=== PATIENT | male | born 1960 | race African-American/Black ===

== ENCOUNTER → 2019-01-24 | Outpatient (CLI) | payer OTHER ==
--- NOTE | 2019-01-24 10:52 | CT ---
EXAMINATION TYPE: CT urogram wo/w con DATE OF EXAM: 01/24/2019 COMPARISON: None HISTORY: Hematuria CT DLP: 2417 mGycm, Automated Exposure Control for Dose Reduction was Utilized. CONTRAST: CT scan of the abdomen and pelvis is performed with oral and without and with IV Contrast, patient in jected with 100 mL of Isovue 300. Three-D imaging of the genitourinary system was performed at a [employer] workstation and submitted for interpretation. FINDINGS: LUNG BASES: No significant abnormality is appreciated. LIVER/GB: The unenhanced images demonstrate no evidence of radiopaque cholelithiasis. No hepatic stea tosis. The visualized portions of the liver on the enhanced images demonstrate no evidence of hepatic mass although the liver is incompletely visualized. PANCREAS: No significant abnormality is seen. SPLEEN: There is incomplete visualization of the spleen on the enhanced images. No discrete splenic l esion is seen. Small splenules are noted adjacent to the ambler spleen. ADRENALS: There is very slight thickening of the left adrenal gland without focal nodule. Adrenal gla nd hyperplasia is likely. Right adrenal gland is unremarkable. KIDNEYS: The unenhanced images demonstrate no evidence of nephrolithiasis. The unenhanced images demonstrate symmetric enhancement of the kidneys. The delayed images demonstrat e no calyceal blunting or dilation. No ureteral stricture is identified. The bladder is suboptimally evaluated due to extensive spray artifact from bilateral hip prostheses. No uroepithelial thickening or ureteral filling defect is seen. BOWEL: Small hiatal hernia is seen. Scattered sigmoid diverticula are seen without pericolonic fat st randing. No dilated large or small bowel. PROSTATE/SEMINAL VESICLES: Nondiagnostic. LYMPH NODES: No greater than 1cm abdominal or pelvic lymph nodes are appreciated. OSSEOUS STRUCTURES: There are bilateral hip prostheses and moderate multilevel degenerative changes o f the spine. Degenerative disc disease is most severe at L4-L5 and L5-S1. OTHER: Abdominal aorta is of normal course and caliber. IMPRESSION: 1. No evidence of nephrolithiasis, hydronephrosis, uroepithelial thickening, nor ureteral filling def ect. The urinary bladder is nondiagnostic secondary to extensive spray artifact generated from bilate ral hip prostheses. 2. Very small hiatal hernia.
== END | disposition home or self-care (01) ==
LOC: RADCTMAIN 08:20
PROVIDERS: ATTEND Urology
DX: K44.9 Diaphragmatic hernia without obstruction or gangrene (principal); R31.1 Benign essential microscopic hematuria
CPT/HCPCS: 74178; 74400; Q9967

== ENCOUNTER 2019-08-13 09:44 | Emergency (ER) | payer OTHER ==
[2019-08-13 09:59] VITALS: BP 151/97; PULSE 73; RESP 18; TEMP 98.5
[2019-08-13] MEDS ORDERED: ceFAZolin 1,000 MG VIAL (IM USE) IM STA (10:17)
[2019-08-13] MEDS ORDERED: DIPH,PERTUS(ACELL)TETVAC-LF 0.5 ML VIAL IM ONE (10:17)
--- NOTE | 2019-08-13 10:21 | ED ---
General Adult HPI - General Chief complaint: Skin/Abscess/Foreign Body Stated complaint: Spider bug on leg Time Seen by Provider: 08/13/19 09:55 Source: patient, RN notes reviewed, old records reviewed Mode of arrival: ambulatory Limitations: no limitations - History of Present Illness Initial comments: This is a 58-year-old male who presents emergency Department with a small superficial excoriation on the right upper anterior thigh and patient states that occurred a few days ago and now it is spread and there is redness over about a 4 cm diameter area. Patient states a little fluid was expressed from this area but no overt pus. Patient denies any fever or chills. Patient assumed it was a spider bite but never saw a spider. Patient does not recall any injury. Patient has no ALLERGIES and he is not a diabetic. - Related Data Home Medications Medication Instructions Recorded Confirmed Acetaminophen Tab [Tylenol Tab] 650 mg PO Q4H PRN 02/10/16 02/22/16 Atorvastatin [Lipitor] 20 mg PO DAILY 02/10/16 02/22/16 Naproxen Sodium [Aleve] 440 mg PO DAILY PRN 02/10/16 02/22/16 Steroid Injection ONCE 02/10/16 02/10/16 amLODIPine [Norvasc] 10 mg PO DAILY 02/10/16 02/22/16 hydrALAZINE HCL [Apresoline] 25 mg PO DAILY 02/16/16 02/22/16 Previous Rx's Medication Instructions Recorded Aspirin 325 mg PO BID #60 tab 02/23/16 Docusate [Colace] 100 mg PO BID #60 capsule 02/23/16 HYDROcodone/APAP 7.5-325MG [[place] 1 - 2 each PO Q6HR PRN #90 tab 02/23/16 7.5] Cephalexin [Keflex] 500 mg PO Q6HR #40 cap 08/13/19 Sulfamethox-Tmp 800-160Mg [Bactrim 1 each PO Q12HR #20 tab 08/13/19 DS 800-160 mg] Allergies Allergy/AdvReac Type Severity Reaction Status Date / Time grass pollen Allergy SNEEZING,ITCHY Verified 08/13/19 09:55 EYES morphine AdvReac "FREEKED Verified 08/13/19 09:55 OUT". DID LIKE THE FEELING IT GAVE HIM. Review of Systems ROS Statement: Those systems with pertinent positive or pertinent negative responses have been documented in the HPI. ROS Other: All systems not noted in ROS Statement are negative. Past Medical History Past Medical History: Hyperlipidemia, Hypertension, Osteoarthritis (OA) History of Any Multi-Drug Resistant Organisms: None Reported Past Surgical History: Appendectomy, Joint Replacement Additional Past Surgical History / Comment(s): LEFT TOTAL HIP, Right Hip, R knee Past Anesthesia/Blood Transfusion Reactions: No Reported Reaction Past Psychological History: No Psychological Hx Reported Smoking Status: Never smoker Past Alcohol Use History: Occasional Past Drug Use History: Marijuana - Past Family History Mother Family Medical History: No Reported History General Exam - General Exam Comments Initial Comments: GENERAL Patient is well-developed and well-nourished. Patient is in mild distress. EYES Patient's pupils are equal and round. Extraocular motion is intact SKIN Unremarkable NEURO The patient is alert and oriented 3 PYSCH Patient has normal interpersonal interactions. MUSCULOSKELETAL There is a area of cellulitis measuring about 4 cm in diameter on the anterior right thigh there is an excoriated area measuring approximately a quarter centimeter in diameter and very minimal fluid was expressed with significant pressure. No fluctuant area was noted Limitations: no limitations Course Vital Signs 08/13/19 09:56 Temperature 98.5 F Pulse Rate 73 Respiratory 18 Rate Blood Pressure 151/97 O2 Sat by Pulse 99 Oximetry Medical Decision Making - Medical Decision Making I did a wound culture because it was a small amount of fluid expressed from the wound Disposition Clinical Impression: Cellulitis, leg Disposition: HOME SELF-CARE Condition: Good Instructions (If sedation given, give patient instructions): Cellulitis (ED) Additional Instructions: Patient should follow-up if symptoms worsen and he should follow-up in 2 days even if they have not worsened Patient should take antibiotics as prescribed Prescriptions: Sulfamethox-Tmp 800-160Mg [Bactrim DS 800-160 mg] 1 each PO Q12HR #20 tab Cephalexin [Keflex] 500 mg PO Q6HR #40 cap Is patient prescribed a controlled substance at d/c from ED?: No Referrals: Cole Melendez MD [Primary Care Provider] - 1-2 days Time of Disposition: 10:18
== END 2019-08-13 10:51 | disposition home or self-care (01) ==
LOC: EC 09:44
DX: L03.115 Cellulitis of right lower limb (principal); Z23 Encounter for immunization; I10 Essential (primary) hypertension; E78.5 Hyperlipidemia, unspecified; Z79.899 Other long term (current) drug therapy; Z88.5 Allergy status to narcotic agent; Z91.09 Other allergy status, other than to drugs and biological substances
CPT/HCPCS: 87070; 87205; 90715; 99284; 90471; 96372; J0690

== ENCOUNTER 2019-10-02 07:47 | Observation (INO) | payer OTHER ==
[2019-10-02] MEDS ORDERED: SODIUM CHLORIDE 0.9% 1,000 ML IV STA (08:03)
[2019-10-02 08:32] LABS: Basophils % (A) 0 %; Eosinophils # (A) 0.2 k/uL (0-0.7); Eosinophils % (A) 2 %; HCT 46.1 % (39.0-53.0); HGB 14.4 gm/dL (13.0-17.5); Lymphocytes # (A) 1.7 k/uL (1.0-4.8); Lymphocytes % (A) 26 %; MCH 26.3 pg (25.0-35.0); MCHC 31.2 g/dL (31.0-37.0); MCV 84.3 fL (80.0-100.0); Mean Platelet Volume 8.4; Monocytes # (A) 0.3 k/uL (0-1.0); Monocytes % (A) 5 %; Neutrophils # (A) 4.1 k/uL (1.3-7.7); Neutrophils % (A) 64 %; Platelet Count 195 k/uL (150-450); RBC 5.47 m/uL (4.30-5.90); RDW 14.5 % (11.5-15.5); WBC 6.4 k/uL (3.8-10.6)
[2019-10-02] MEDS ORDERED: ONDANSETRON 4 MG/2 ML VIAL IVP STA (08:33)
[2019-10-02] MEDS ORDERED: ASPIRIN 81 MG PO STA (08:47)
[2019-10-02] MEDS ORDERED: HEPARIN SODIUM,PORCINE 5,000 UNIT/ML 1 ML VIAL IV PRN (08:47)
[2019-10-02] MEDS ORDERED: HEPARIN SODIUM,PORCINE 5,000 UNIT/ML 1 ML VIAL IV ONE (08:47)
[2019-10-02] MEDS ORDERED: NITROGLYCERIN SL TABS 0.4 MG TAB SUBLINGUAL PRN (08:47)
--- NOTE | 2019-10-02 08:47 | ED ---
Chest Pain HPI - General Chief Complaint: Chest Pain Stated Complaint: Chest pain Time Seen by Provider: 10/02/19 07:53 Source: patient, RN notes reviewed, old records reviewed Mode of arrival: wheelchair Limitations: no limitations - History of Present Illness Initial Comments: This is a 50-year-old male here for evaluation. Patient comes in for chest pain substernal left-sided chest. No radiation. Patient is a history of low blood pressure and high cholesterol, does occasionally smoke marijuana was smoking some marijuana last night also suffers from anxiety does not drink alcohol. Patient states pain was from sleep this morning about 4 AM. He has had a stress test within the last 5 years. Present was normal. Symptoms are persisting curr ently with difficulty breathing some sweating and shortness of breath. MD Complaint: chest pain -: hour(s) Onset: during rest, awoke with symptoms Pain Location: substernal, left chest Pain Radiation: none Severity: moderate Quality: aching, heaviness Consistency: constant Improves With: nothing Worsens With: nothing Anginal Symptoms: diaphoresis, dyspnea Other Symptoms: palpitations Treatments Prior to Arrival: none - Related Data Home Medications Medication Instructions Recorded Confirmed Acetaminophen Tab [Tylenol Tab] 650 mg PO Q4H PRN 02/10/16 02/22/16 Atorvastatin [Lipitor] 20 mg PO DAILY 02/10/16 02/22/16 Naproxen Sodium [Aleve] 440 mg PO DAILY PRN 02/10/16 02/22/16 Steroid Injection ONCE 02/10/16 02/10/16 amLODIPine [Norvasc] 10 mg PO DAILY 02/10/16 02/22/16 hydrALAZINE HCL [Apresoline] 25 mg PO DAILY 02/16/16 02/22/16 Previous Rx's Medication Instructions Recorded Aspirin 325 mg PO BID #60 tab 02/23/16 Docusate [Colace] 100 mg PO BID #60 capsule 02/23/16 HYDROcodone/APAP 7.5-325MG [[place] 1 - 2 each PO Q6HR PRN #90 tab 02/23/16 7.5] Cephalexin [Keflex] 500 mg PO Q6HR #40 cap 08/13/19 Sulfamethox-Tmp 800-160Mg [Bactrim 1 each PO Q12HR #20 tab 08/13/19 DS 800-160 mg] Allergies Allergy/AdvReac Type Severity Reaction Status Date / Time grass pollen Allergy SNEEZING,ITCHY Verified 10/02/19 07:52 EYES morphine AdvReac "FREEKED Verified 10/02/19 07:52 OUT". DID LIKE THE FEELING IT GAVE HIM. Review of Systems ROS Statement: Those systems with pertinent positive or pertinent negative responses have been documented in the HPI. ROS Other: All systems not noted in ROS Statement are negative. EKG Findings - EKG Comments: EKG Findings:: EKG shows sinus rhythm with 74, TX 144, QRS 80, QTC 437 patient does have no significant ST elevation. EKG is done here with no significant changes. EKG compared to prior morphology does appear the same Past Medical History Past Medical History: Hyperlipidemia, Hypertension, Osteoarthritis (OA) History of Any Multi-Drug Resistant Organisms: MRSA Date of last positivie culture/infection: 08/13/19 MDRO Source:: MRSA LEG Past Surgical History: Appendectomy, Joint Replacement Additional Past Surgical History / Comment(s): LEFT TOTAL HIP, Right Hip, R knee Past Anesthesia/Blood Transfusion Reactions: No Reported Reaction Past Psychological History: No Psychological Hx Reported Smoking Status: Never smoker Past Alcohol Use History: Occasional Past Drug Use History: Marijuana - Past Family History Mother Family Medical History: No Reported History General Exam Limitations: no limitations General appearance: alert, in no apparent distress Head exam: Present: atraumatic, normocephalic, normal inspection Eye exam: Present: normal appearance, PERRL, EOMI. Absent: scleral icterus, conjunctival injection, periorbital swelling ENT exam: Present: normal exam, mucous membranes moist Neck exam: Present: normal inspection. Absent: tenderness, meningismus, lymphadenopathy Respiratory exam: Present: normal lung sounds bilaterally. Absent: respiratory distress, wheezes, rales, rhonchi, stridor Cardiovascular Exam: Present: regular rate, normal rhythm, normal heart sounds. Absent: systolic murmur, diastolic murmur, rubs, gallop, clicks GI/Abdominal exam: Present: soft, normal bowel sounds. Absent: distended, tenderness, guarding, rebound, rigid Extremities exam: Present: normal inspection, full ROM, normal capillary refill. Absent: tenderness, pedal edema, joint swelling, calf tenderness Back exam: Present: normal inspection Neurological exam: Present: alert, oriented X3, CN II-XII intact Psychiatric exam: Present: normal affect, normal mood Skin exam: Present: warm, dry, intact, normal color. Absent: rash Course Vital Signs 10/02/19 10/02/19 07:50 07:59 Temperature 97 F L Pulse Rate 70 80 Respiratory 18 20 Rate Blood Pressure 135/80 148/92 O2 Sat by Pulse 96 98 Oximetry - Reevaluation(s) Reevaluation #1: 10/02/19 08:45 Medical record is reviewed Reevaluation #2: 10/02/19 08:45 Patient so a chest pain - Consultations Consultation #1: Spoke with Dr. Melvin who is agreeable for admission Chest Pain MDM - MDM 58 male here for evaluation. Patient has significant pain persistent. Will be admitted for cardiac observation Critical Care Time Critical Care Time: Yes Total Critical Care Time: 31 Disposition Clinical Impression: Chest pain Disposition: ADMITTED IP TO THIS HOSP Condition: Undetermined Is patient prescribed a controlled substance at d/c from ED?: No Referrals: Cole Melendez MD [Primary Care Provider] - 1-2 days
[2019-10-02 08:55] LABS: INR 0.9 (<1.2); Partial Thromboplastin Time 24.4 sec (22.0-30.0)
[2019-10-02 09:00] LABS: Albumin 4.4 g/dL (3.5-5.0); Calcium 9.3 mg/dL (8.4-10.2); Potassium 3.6 mmol/L (3.5-5.1); Total Bilirubin 0.8 mg/dL (0.2-1.3); Total Protein 7.8 g/dL (6.3-8.2)
[2019-10-02] MEDS ORDERED: HEPARIN SOD,PORK IN 0.45% NACL 25,000 UNIT in 0.45% NACL 1 250ML.BAG IV SCH (09:00)
[2019-10-02] MEDS ORDERED: LORazepam 2 MG/ML INJ IV STA (09:04)
[2019-10-02] MEDS: SODIUM CHLORIDE 0.9% 1,000 ML IV SCH (09:12)
[2019-10-02] MEDS: METOPROLOL TARTRATE 25 MG TAB PO SCH ×2 (09:17→20:07)
--- NOTE | 2019-10-02 10:22 | CT ---
CT CHEST FOR PULMONARY EMBOLISM. EXAMINATION TYPE: CT angio chest DATE OF EXAM: 10/02/2019 INDICATION: Mid Chest pain with shortness of breath. CT DLP: 603.6 mGycm, Automated exposure control for dose reduction was used. CONTRAST: Patient injected with 100 mL of Isovue 370. COMPARISON: None TECHNIQUE: CT of the chest is performed on a spiral scan at 2 mm thick sections. Study is performed with intravenous contrast timed for evaluation for pulmonary embolism. This will limit additional po rtions of the evaluation. 3-D MIP images reconstructed by the technologist are reviewed on the compu ter in the coronal and sagittal planes. There is some limitation due to beam hardening artifact from the contrast and/or body habitus. FINDINGS: No persistent filling defects are evident to suggest an acute pulmonary embolism. No mediastinal or hilar adenopathy enlarged by CT criteria is evident. The ascending aorta diameter at the level of the main pulmonary artery is 3.7 cm. No obvious dissection is identified. The main p ulmonary artery diameter at the bifurcation is 2.5 cm. Lung windows are clear. Limited CT section through the upper abdomen are unremarkable. IMPRESSIONS: 1. No suspicious acute changes CTA chest.
--- NOTE | 2019-10-02 11:57 | P.CRDCN ---
History of Present Illness Consult date: 10/02/19 Chief complaint: Chest pain History of present illness: This is a very pleasant 58-year-old -[place]yp[place] gentleman who sees Dr. Clements in the office on regular basis with a past medical history significant for hypertension, dyslipidemia, and significant history of smoking, presented to the emergency room complaining of chest discomfort. He was in his usual state of health until this morning when he woke up from sleep complaining of discomfort. The patient described her discomfort in the lower chest as well as epigastric area. He described it as sharp, without any radiation, and without any associated symptoms of shortness of breath, sweating, nausea, or syncope. No symptoms of heart racing or fluttering. When he presented to the emergency room he was in pain he was given some pain medication. He continues to have mild ongoing chest discomfort but he states clearly that the discomfort is worse if he takes a deep breath. D-dimer came in to be elevated but CTA of the chest did not show any evidence of dissection or pulmonary embolism. The patient stated that last night he slept on one of the recliner chair in her ongoing. He stated that he woke up complaining of chest discomfort. No history of coronary artery disease or congestive heart failure or cardiac arrhythmia. He stated that he underwent stress test Dr. Clemetns office in the past but that was long time ago. The EKG revealed sinus rhythm without any significant ST or T-wave abnormalities. The first set of troponin came in to be unremarkable. The rest of the blood work came in to be unremarkable as well. Past Medical History Past Medical History: Chest Pain / Angina, Hyperlipidemia, Hypertension, Memory Impairment, Osteoarthritis (OA), Prostate Disorder, Renal Disease History of Any Multi-Drug Resistant Organisms: MRSA Date of last positivie culture/infection: 08/13/19 MDRO Source:: MRSA right LEG Past Surgical History: Appendectomy, Joint Replacement Additional Past Surgical History / Comment(s): LEFT TOTAL HIP, Right Hip, R knee Past Anesthesia/Blood Transfusion Reactions: No Reported Reaction Past Psychological History: Anxiety, Panic Disorder Smoking Status: Former smoker Past Alcohol Use History: Occasional Additional Past Alcohol Use History / Comment(s): CIGARS-STARTED SMOKING AT AGE 25- SMOKES A CIGAR A WEEK Past Drug Use History: Marijuana Additional Drug Use History / Comment(s): LAST USED MARIJUANA 10/02/2019 - Past Family History Mother Family Medical History: Diabetes Mellitus, Hypertension Daughter(s) Additional Family Medical History / Comment(s): LUPUS Medications and Allergies Home Medications Medication Instructions Recorded Confirmed Type Acetaminophen Tab [Tylenol Tab] 650 mg PO Q4H PRN 02/10/16 02/22/16 History Atorvastatin [Lipitor] 20 mg PO DAILY 02/10/16 02/22/16 History Naproxen Sodium [Aleve] 440 mg PO DAILY PRN 02/10/16 02/22/16 History Steroid Injection ONCE 02/10/16 02/10/16 History amLODIPine [Norvasc] 10 mg PO DAILY 02/10/16 02/22/16 History hydrALAZINE HCL [Apresoline] 25 mg PO DAILY 02/16/16 02/22/16 History Aspirin 325 mg PO BID #60 tab 02/23/16 Rx Docusate [Colace] 100 mg PO BID #60 capsule 02/23/16 Rx HYDROcodone/APAP 7.5-325MG [[place] 1 - 2 each PO Q6HR PRN #90 tab 02/23/16 Rx 7.5] Cephalexin [Keflex] 500 mg PO Q6HR #40 cap 08/13/19 Rx Sulfamethox-Tmp 800-160Mg [Bactrim 1 each PO Q12HR #20 tab 08/13/19 Rx DS 800-160 mg] Allergies Allergy/AdvReac Type Severity Reaction Status Date / Time grass pollen Allergy SNEEZING,ITCHY Verified 10/02/19 07:52 EYES morphine AdvReac "FREEKED Verified 10/02/19 07:52 OUT". DID LIKE THE FEELING IT GAVE HIM. Physical Exam Vitals: Vital Signs Temp Pulse Pulse Resp BP BP Pulse Ox 10/02/19 11:11 98.5 F 72 17 134/81 96 10/02/19 10:50 97.6 F 66 16 139/82 98 10/02/19 08:45 70 18 141/78 98 10/02/19 07:59 80 20 148/92 98 10/02/19 07:50 97 F L 70 18 135/80 96 Intake and Output 10/01/19 10/02/19 10/02/19 22:59 06:59 14:59 Other: Weight 106.594 kg - Constitutional General appearance: no acute distress - Respiratory Respiratory: bilateral: CTA - Cardiovascular Rhythm: regular Heart sounds: normal: S1, S2 Results 10/02/19 08:07 10/02/19 08:07 Cardiac Enzymes 10/02/19 10/02/19 Range/Units 08:07 08:07 AST 31 (17-59) U/L Troponin I <0.012 (0.000-0.034) ng/mL Coagulation 10/02/19 Range/Units 08:07 PT 10.0 (9.0-12.0) sec APTT 24.4 (22.0-30.0) sec CBC 10/02/19 Range/Units 08:07 WBC 6.4 (3.8-10.6) k/uL RBC 5.47 (4.30-5.90) m/uL Hgb 14.4 (13.0-17.5) gm/dL Hct 46.1 (39.0-53.0) % Plt Count 195 (150-450) k/uL Comprehensive Metabolic Panel 10/02/19 Range/Units 08:07 Sodium 141 (137-145) mmol/L Potassium 3.6 (3.5-5.1) mmol/L Chloride 105 (98-107) mmol/L Carbon Dioxide 25 (22-30) mmol/L BUN 14 (9-20) mg/dL Creatinine 1.12 (0.66-1.25) mg/dL Glucose 109 H (74-99) mg/dL Calcium 9.3 (8.4-10.2) mg/dL AST 31 (17-59) U/L ALT 18 (4-49) U/L Alkaline Phosphatase 109 (38-126) U/L Total Protein 7.8 (6.3-8.2) g/dL Albumin 4.4 (3.5-5.0) g/dL Current Medications Generic Name Dose Route Start Last Admin Trade Name Freq PRN Reason Stop Dose Admin Aspirin 325 mg 10/03/19 09:00 Aspirin PO DAILY JANET Heparin Sodium (Porcine) 0 unit 10/02/19 08:47 Heparin IV Q6HR PRN Low PTT Protocol Sodium Chloride 1,000 mls @ 20 mls/hr 10/02/19 09:00 10/02/19 09:12 Saline 0.9% IV 20 mls/hr .Q24H JANET Administration Heparin Sodium/Sodium Chloride 250 mls @ 9.999 mls/hr 10/02/19 09:00 10/02/19 09:12 25,000 unit/ Sodium Chloride IV 9.38 units/kg/hr .Q24H JANET 9.999 mls/hr Administration Protocol 9.38 UNITS/KG/HR Metoprolol Tartrate 25 mg 10/02/19 09:00 10/02/19 09:17 Lopressor PO 25 mg BID JANET Administration Nitroglycerin 0.4 mg 10/02/19 08:47 Nitrostat SUBLINGUAL Q5M PRN Chest Pain Intake and Output 10/01/19 10/02/19 10/02/19 22:59 06:59 14:59 Other: Weight 106.594 kg Patient Weight 10/03/19 06:59 Weight 106.594 kg 10/02/19 08:07 10/02/19 08:07 Assessment and Plan Assessment: Assessment #1 atypical/musculoskeletal chest discomfort #2 hypertension #3 dyslipidemia Plan #1 rule out acute coronary event. We'll follow-up with the serial cardiac enzymes #2 continue his current home medications #3 further recommendation to follow Thank you for allowing us participate in his care
[2019-10-02] MEDS ORDERED: ACETAMINOPHEN TAB 325 MG TAB PO PRN (13:08)
[2019-10-02] MEDS ORDERED: ONDANSETRON 4 MG/2 ML VIAL IVP PRN (13:08)
--- NOTE | 2019-10-02 13:09 | P.HPIM ---
History of Present Illness H&P Date: 10/02/19 This is a 58 years old -[place] male with past medical history of hyperlipidemia, hypertension, memory impairment, BPH, renal disease with past history of MRSA positive skin in the right lower leg on August 2019 post right knee replacement comes in with substernal chest pressure that started at 4 AM in the morning while patient was sleeping. Patient did notice pain in his neck in the night and was getting a massage from his girlfriend. He slept in a recliner and felt he was in an upward pose when the chest pain started. Chest pain gets worse with deep breath and is associated with sweating. Patient is short of breath on exertion. He denies any fever or chills or upper respiratory infection. He did endorse a dry cough for the past few days. Patient denies any sick contacts denies any previous history of similar episode. He did smoke marijuana yesterday On evaluation of vitals, temp is 98.5 pulse 72 respiratory rate 17 blood pressure 134/81 CBC is unremarkable CMP is unremarkable CTA was negative for any pulmonary embolism or any consolidation concerning for pneumon ia. Influenza A and B-. Troponin 1 negative EKG was positive for ST changes noted in the anterior leads with flattening of T waves noted in lead 3. Repeat EKG tomorrow. Cardiology consulted Review of Systems Constitutional: Denies chills, Denies fever, Denies lethargy, Denies malaise, Denies poor appetite, Denies weakness, Denies weight loss Eyes: denies decreased vision, denies diplopia, denies discharge, denies pain Ears: deny: decreased hearing Ears, nose, mouth and throat: Denies dental pain, Denies headache, Denies nasal discharge, Denies nose pain Cardiovascular: Endorses chest pain on taking deep breath Denies decreased exercise tolerance, Denies edema endorses high blood pressure, Denies irregular heart beat, Denies palpitations, Denies paroxysmal nocturnal dyspnea, Denies rapid heart beat, endorses shortness of breath Respiratory: Denies congestion, Denies cough, Denies cough with sputum, endorses dyspnea, Denies home oxygen, Denies wheezing Gastrointestinal: Denies abdominal pain, Denies change in bowel habits, Denies coffee ground emesis, Denies early satiety, Denies excessive gas, Denies heartburn, Denies hematemesis, Denies hematochezia, Denies loss of appetite, Denies nausea, Denies vomiting Genitourinary: Denies dysuria, Denies flank pain, Denies kidney stones, Denies menorrhagia, Denies urgency, Denies urinary frequency Musculoskeletal: Denies gait dysfunction, Denies limitation of motion, Denies morning stiffness, Denies muscle cramps endorses neck stiffness Integumentary: Denies rash, Denies wounds, Denies brittle nails, Denies change in hair/nails, Denies darkening of skin Neurological: Denies balance difficulties, Denies change in speech, Denies double vision, Denies gait dysfunction, Denies loss of vision, Denies motor disturbance, Denies numbness, Denies paralysis, Denies paresthesias, Denies seizures Psychiatric: Denies anxiety, Denies depression Endocrine: Denies excessive sweating, Denies excessive thirst, Denies high blood sugars, Denies palpitations Hematologic/Lymphatic: Denies easy bruising, Denies lymphadenopathy Past Medical History Past Medical History: Chest Pain / Angina, Hyperlipidemia, Hypertension, Memory Impairment, Osteoarthritis (OA), Prostate Disorder, Renal Disease History of Any Multi-Drug Resistant Organisms: MRSA Date of last positivie culture/infection: 08/13/19 MDRO Source:: MRSA right LEG Past Surgical History: Appendectomy, Joint Replacement Additional Past Surgical History / Comment(s): LEFT TOTAL HIP, Right Hip, R knee Past Anesthesia/Blood Transfusion Reactions: No Reported Reaction Past Psychological History: Anxiety, Panic Disorder Smoking Status: Former smoker Past Alcohol Use History: Occasional Additional Past Alcohol Use History / Comment(s): CIGARS-STARTED SMOKING AT AGE 25- SMOKES A CIGAR A WEEK Past Drug Use History: Marijuana Additional Drug Use History / Comment(s): LAST USED MARIJUANA 10/02/2019 - Past Family History Mother Family Medical History: Diabetes Mellitus, Hypertension Daughter(s) Additional Family Medical History / Comment(s): LUPUS Medications and Allergies Home Medications Medication Instructions Recorded Confirmed Type Acetaminophen Tab [Tylenol Tab] 650 mg PO Q4H PRN 02/10/16 02/22/16 History Atorvastatin [Lipitor] 20 mg PO DAILY 02/10/16 02/22/16 History Naproxen Sodium [Aleve] 440 mg PO DAILY PRN 02/10/16 02/22/16 History Steroid Injection ONCE 02/10/16 02/10/16 History amLODIPine [Norvasc] 10 mg PO DAILY 02/10/16 02/22/16 History hydrALAZINE HCL [Apresoline] 25 mg PO DAILY 02/16/16 02/22/16 History Aspirin 325 mg PO BID #60 tab 02/23/16 Rx Docusate [Colace] 100 mg PO BID #60 capsule 02/23/16 Rx HYDROcodone/APAP 7.5-325MG [[place] 1 - 2 each PO Q6HR PRN #90 tab 02/23/16 Rx 7.5] Cephalexin [Keflex] 500 mg PO Q6HR #40 cap 08/13/19 Rx Sulfamethox-Tmp 800-160Mg [Bactrim 1 each PO Q12HR #20 tab 08/13/19 Rx DS 800-160 mg] Allergies Allergy/AdvReac Type Severity Reaction Status Date / Time grass pollen Allergy SNEEZING,ITCHY Verified 10/02/19 07:52 EYES morphine AdvReac "FREEKED Verified 10/02/19 07:52 OUT". DID LIKE THE FEELING IT GAVE HIM. Physical Exam Vitals: Vital Signs Temp Pulse Pulse Resp BP BP Pulse Ox 10/02/19 11:11 98.5 F 72 17 134/81 96 10/02/19 10:50 97.6 F 66 16 139/82 98 10/02/19 08:45 70 18 141/78 98 10/02/19 07:59 80 20 148/92 98 10/02/19 07:50 97 F L 70 18 135/80 96 Intake and Output 10/01/19 10/02/19 10/02/19 22:59 06:59 14:59 Other: Weight 106.594 kg - Constitutional General appearance: cooperative, no acute distress, obese - EENT Eyes: anicteric sclerae, PERRLA, normal appearance ENT: hearing grossly normal - Neck Neck: no lymphadenopathy, normal ROM, no other, no rigidity, no stridor, no tenderness in the neck noted examination - Respiratory Respiratory: bilateral: CTA, negative: diminished, dullness, rales, rhonchi no chest wall tenderness noted - Cardiovascular Rhythm: regular Heart sounds: normal: S1, S2 Abnormal Heart Sounds: no systolic murmur, no diastolic murmur, no rub, no S3 Gallop, no S4 Gallop, no click, no other - Gastrointestinal General gastrointestinal: normal bowel sounds, soft nontender - Integumentary Integumentary: no rash - Neurologic Neurologic: CNII-XII intact - Musculoskeletal Musculoskeletal: gait normal, strength equal bilaterally - Psychiatric Psychiatric: A&O x's 3, appropriate affect Results CBC & Chem 7: 10/02/19 08:07 10/02/19 08:07 Labs: Abnormal Lab Results - Last 24 Hours (Table) 10/02/19 10/02/19 Range/Units 08:07 08:07 D-Dimer 0.76 H (<0.60) mg/L FEU Glucose 109 H (74-99) mg/dL Thrombosis Risk Factor Assmnt - DVT/VTE Prophylaxis DVT/VTE Prophylaxis: Mechanical Prophylaxis ordered - Choose All That Apply Any of the Below Risk Factors Present?: Yes Each Factor Represents 1 point: Age 41-60 years, Obesity (BMI >25) Other Risk Factors: No Other congenital or acquired thrombophilia - If yes, enter type in comment: No Thrombosis Risk Factor Assessment Total Risk Factor Score: 2 Thrombosis Risk Factor Assessment Level: Low Risk Assessment and Plan Plan: #1 acute chest pain rule out ACS. Troponin 3 EKG in the morning and echocardiogram ordered, cardiology consult. Continue aspirin 325 mg by mouth daily. Lipid panel ordered. Toradol 30 every 6 for musculoskeletal pain. Metoprolol initiated 25 mg by mouth twice a day. Patient did smoke marijuana prior to the onset of chest pain #2 hyperlipidemia continue atorvastatin 20 mg by mouth daily #3 hypertension continue Norvasc 10 mg by mouth daily. #4 DVT prophylaxis with ambulation #5 history of MRSA in the proximal right lower extremity above his knee resolved healed #6 GI prophylaxis with Pepcid 20 mg by mouth daily CODE STATUS full code Patient will stay in observation until cleared by cardiology
[2019-10-02] MEDS: KETOROLAC 30 MG/ML 1 ML VIAL IVP SCH ×2 (18:13→23:34)
[2019-10-02] MEDS: guaiFENesin 600 MG TABLET.ER PO SCH (20:08)
[2019-10-03 05:37] LABS: Mean Platelet Volume 9.3; Platelet Count 151 k/uL (150-450)
[2019-10-03 06:08] LABS: Cholesterol 116 mg/dL (<200); HDL Cholesterol 53 mg/dL (40-60); LDL Cholesterol,Calculated 53 mg/dL (0-99); Triglycerides 52 mg/dL (<150)
[2019-10-03 07:09] LABS: Glucose,Whole Blood 82 mg/dL (75-99)
[2019-10-03 07:33] VITALS: BP 120/71; PULSE 72; RESP 17; TEMP 97.7
[2019-10-03] MEDS: KETOROLAC 30 MG/ML 1 ML VIAL IVP SCH (08:24)
[2019-10-03] MEDS: guaiFENesin 600 MG TABLET.ER PO SCH (08:24)
[2019-10-03] MEDS: SODIUM CHLORIDE 0.9% 1,000 ML IV SCH (08:26)
[2019-10-03] MEDS ORDERED: ASPIRIN 325 MG TAB PO SCH (09:00)
[2019-10-03] MEDS ORDERED: FAMOTIDINE 20 MG TAB PO SCH (09:00)
[2019-10-03] MEDS ORDERED: amLODIPine 5 MG TAB PO SCH (09:00)
[2019-10-03] MEDS ORDERED: ATORVASTATIN 20 MG TAB PO SCH (09:00)
[2019-10-03] MEDS ORDERED: ASPIRIN 81 MG PO SCH (09:00)
--- NOTE | 2019-10-03 10:14 | ECHOF ---
Referral Reason:pericarditis MEASUREMENTS -------- HEIGHT: 182.9 cm WEIGHT: 106.6 kg BP: 125/72 RVIDd: 2.9 cm (< 3.3) IVSd: 1.3 cm (0.6 - 1.1) LVIDd: 4.4 cm (3.9 - 5.3) LVPWd: 1.3 cm (0.6 - 1.1) IVSs: 1.7 cm LVIDs: 2.8 cm LVPWs: 1.7 cm LA Diam: 3.3 cm (2.7 - 3.8) LAESV Index (A-L): 24.35 ml/m Ao Diam: 3.3 cm (2.0 - 3.7) AV Cusp: 2.4 cm (1.5 - 2.6) MV EXCURSION: 19.436 mm (> 18.000) MV EF SLOPE: 93 mm/s (70 - 150) EPSS: 0.4 cm MV E Jaison: 0.72 m/s MV DecT: 206 ms MV A Jaison: 0.80 m/s MV E/A Ratio: 0.90 RAP: 5.00 mmHg RVSP: 28.61 mmHg FINDINGS -------- Sinus rhythm. This was a technically adequate study. The left ventricular size is normal. There is mild concentric left ventricular hypertrophy. Overa ll left ventricular systolic function is normal with, an EF between 55 - 60 %. The right ventricle is normal in size. Normal LA size by volume 22+/-6 ml/m2. The right atrial size is normal. Interatrial and interventricular septum intact. The aortic valve is trileaflet, and appears structurally normal. No aortic stenosis or regurgitation. The mitral valve is normal. There is trace to mild mitral regurgitation. The tricuspid valve appears structurally normal. Mild tricuspid regurgitation present. Right vent ricular systolic pressure is normal at < 35 mmHg. The right ventricular systolic pressure, as measu red by Doppler, is 28.61mmHg. Trace/mild (physiologic) pulmonic regurgitation. The aortic root size is normal. Normal inferior vena cava with normal inspiratory collapse consistent with estimated right atrial pre ssure of 5 mmHg. There is no pericardial effusion. CONCLUSIONS -------- 1. Sinus rhythm. 2. The left ventricular size is normal. 3. There is mild concentric left ventricular hypertrophy. 4. Overall left ventricular systolic function is normal with, an EF between 55 - 60 %. 5. Normal LA size by volume 22+/-6 ml/m2. 6. The aortic valve is trileaflet, and appears structurally normal. No aortic stenosis or regurgitati on. 7. There is trace to mild mitral regurgitation. 8. Mild tricuspid regurgitation present. 9. Right ventricular systolic pressure is normal at < 35 mmHg. 10. Trace/mild (physiologic) pulmonic regurgitation. 11. There is no pericardial effusion. MEDICAL RECORDS ADMINISTRATOR: Paz Catherine RDCS
[2019-10-03] MEDS: METOPROLOL TARTRATE 25 MG TAB PO SCH (10:17)
--- NOTE | 2019-10-03 10:34 | P.PN ---
Subjective This is a pleasant 58-year-old male past medical history significant for hypertension and dyslipidemia. He follows in the office with Dr. Clements although has not had an appointment for a couple years. He initially presented to the hospital with symptoms of chest discomfort. Cardiac enzymes negative 3. He is seen and examined resting comfortably laying flat no acute distress. He denies any further symptoms of chest discomfort. He denies shortness of breath, dizziness or palpitations. Blood pressure 120/71 heart rate 72 afebrile maintaining oxygen saturation on room air. Lipid profile reveals an LDL of 53. Currently maintained on amlodipine 5 mg daily, aspirin 325 mg daily, atorvastatin 20 mg daily and Lopressor 25 mg twice a day. GENERAL: Well-appearing, well-nourished and in no acute distress. NECK: Supple without JVD or thyromegaly. LUNGS: Breath sounds clear to auscultation bilaterally. Respiration equal and unlabored. No wheezes, rales or rhonchi. HEART: Regular rate and rhythm without murmurs, rubs or gallops. S1 and S2 heard. EXTREMITIES: Normal range of motion, no edema. No clubbing or cyanosis. Periphe ral pulses intact. ASSESSMENT Chest pain while sleeping, atypical. An acute event has been ruled out. Hypertension Dyslipidemia PLAN An acute coronary event has been ruled out. Discontinue heparin infusion. Echocardiogram has been ordered and will be reviewed. Perform stress echo to assess for stress induced ischemia. If stress test is normal he can be discharged from a cardiac perspective. Follow up with Dr. Clements upon discharge. Nurse Practitioner note has been reviewed, I agree with a documented findings and plan of care. Patient was seen and examined. Objective - Vital Signs Vital signs: Vital Signs Temp 97.7 F 10/03/19 07:32 Pulse 72 10/03/19 07:32 Resp 17 10/03/19 07:32 BP 120/71 10/03/19 07:32 Pulse Ox 97 10/03/19 07:32 Intake & Output 10/02/19 10/03/19 10/03/19 18:59 06:59 18:59 Intake Total 62.827 240 Balance 62.827 240 Weight 106.594 kg 107.3 kg Intake: Intake, IV Titration 62.827 Amount Heparin Sod,Pork in 0.45% 62.827 NaCl 25,000 unit In 0.45 % NaCl 1 250ml.bag @ 9.38 UNITS/KG/HR 9.999 mls/hr IV .Q24H [facility] Rx#: [id number] Oral 240 Other: Voiding Method Toilet Toilet Toilet # Voids 1 - Labs CBC & Chem 7: 10/03/19 05:28 10/02/19 08:07 Labs: Abnormal Lab Results - Last 24 Hours (Table) 10/02/19 10/03/19 Range/Units 14:18 05:28 APTT 48.9 H 46.7 H (22.0-30.0) sec
--- NOTE | 2019-10-03 11:10 | P.DS ---
Providers Date of admission: 10/02/19 08:47 Expected date of discharge: 10/03/19 Attending physician: Julian Melvin MD Consults: 10/02/19 08:47 Consult Physician Urgent Consulting Provider: Lorraine Conklin Consult Reason/Comments: cp Do you want consulting provider notified?: Yes Primary care physician: [facility] Course: This is a 58 years old -[place] male with past medical history of hyperlipidemia, hypertension, memory impairment, BPH, renal disease with past history of MRSA positive skin in the right lower leg on August 2019 post right knee replacement comes in with substernal chest pressure that started at 4 AM in the morning while patient was sleeping. Patient did notice pain in his neck in the night and was getting a massage from his girlfriend. He slept in a recliner and felt he was in an upward pose when the chest pain started. Chest pain gets worse with deep breath and is associated with sweating. Patient is short of breath on exertion. He denies any fever or chills or upper respiratory infection. He did endorse a dry cough for the past few days. Patient denies any sick contacts denies any previous history of similar episode. He did smoke marijuana yesterday On evaluation of vitals, temp is 98.5 pulse 72 respiratory rate 17 blood pressure 134/81 CBC is unremarkable CMP is unremarkable CTA was negative for any pulmonary embolism or any consolidation concerning for pneumonia. Influenza A and B-. Troponin 1 negative EKG was positive for ST changes noted in the anterior leads with flattening of T waves noted in lead 3. Repeat EKG tomorrow. Cardiology consulted 10/03: Echocardiogram reveals EF of 55-60% with mild concentric left hypertrophy, trace to mild mitral regurgitation, mild tricuspid regurgitation. Patient has been seen by cardiology and TROPONINS have been negative. Stress echocardiogram has been ordered which reported as negative. Patient has been cleared by cardiology for discharge. Patient was seen in the stress lab. He states he does have some chest pain that happens with coughing occasionally. Otherwise he is feeling improved. Discussed etiology of chest pain most likely secondary to coughing and a chest wall or pleuritic type chest pain. Patient will be started on Medrol Dosepak. Patient will be discharged home today in stable condition. Discharge diagnoses: 1 acute chest pain secondary to pleurisy. #2 hyperlipidemia #3 hypertension #4 history of MRSA Discharge plan: Home Impression and plan of care have been directed as dictated by the signing physician. Erlinda Sawyer nurse practitioner acting as scribe for signing physician. Patient Condition at Discharge: Good Plan - Discharge Summary Discharge Rx Participant: No New Discharge Prescriptions: New methylPREDNISolone Dose Pack [Medrol Dose Pack] 4 mg PO DIRECTED #21 package No Action amLODIPine [Norvasc] 10 mg PO DAILY Atorvastatin [Lipitor] 20 mg PO DAILY hydrALAZINE HCL [Apresoline] 25 mg PO BID Metoprolol Succinate [Toprol XL] 25 mg PO DAILY Discharge Medication List Atorvastatin [Lipitor] 20 mg PO DAILY 02/10/16 [History] amLODIPine [Norvasc] 10 mg PO DAILY 02/10/16 [History] hydrALAZINE HCL [Apresoline] 25 mg PO BID 02/16/16 [History] Metoprolol Succinate [Toprol XL] 25 mg PO DAILY 10/02/19 [History] methylPREDNISolone Dose Pack [Medrol Dose Pack] 4 mg PO DIRECTED #21 package 10/03/19 [Rx] Follow up Appointment(s)/Referral(s): Unruly Clements MD [STAFF PHYSICIAN] - 2 Weeks Cole Melendez MD [Primary Care Provider] - 1 Week Discharge Disposition: HOME SELF-CARE
--- NOTE | 2019-10-03 11:47 | ECHOS ---
STRESS ECHOCARDIOGRAM DATE OF SERVICE: 10/03/2019 INDICATIONS: Chest pain. MEDICATIONS: BASELINE HEART RATE: 54 BASELINE BLOOD PRESSURE: 142/88 MAXIMUM HEART RATE: 146 MAXIMUM BLOOD PRESSURE: 191/62 85% MPHR: 138 100% MPHR: 162 METS: 8.9 MAXIMUM STAGE REACHED: II TOTAL EXERCISE TIME: 7 minutes 30 seconds CLINICAL INFORMATION: Baseline rhythm is sinus mechanism, rate of 54, normal axis and intervals, poor R progression. Baseline blood pressure 142/88 mmHg. Patient exercised on Radames protocol for 7 minutes 30 seconds reaching a peak rate 146 beats per minute which is equal to 90% maximum predicted heart rate. Peak blood pressure 191/62 mmHg. Test was terminated secondary to fatigue. There was no chest pain. Electrocardiograph monitoring revealed no evidence of diagnostic ischemic ST deviation. Rare PVCs were noted. Baseline echocardiogram revealed normal wall thickening and motion. There was no evidence of hypokinesis or dyskinesis. CONCLUSION: 1. Average exercise tolerance with normal electrocardiographic response to exercise and rare PVCs. 2. Normal stress echocardiogram with no evidence of stress induced ischemia. MMODL / IJN: [id number] /
== END 2019-10-03 11:40 | disposition home or self-care (01) ==
LOC: EC 07:47 → 1SOBS 08:47
PROVIDERS: ADMIT Internal Medicine; ATTEND Internal Medicine
DX: R09.1 Pleurisy (principal); E78.00 Pure hypercholesterolemia, unspecified; F41.9 Anxiety disorder, unspecified; R00.2 Palpitations; E78.5 Hyperlipidemia, unspecified; I12.9 Hypertensive chronic kidney disease with stage 1 through stage 4 chronic kidney disease, or unspecified chronic kidney disease; N18.9 Chronic kidney disease, unspecified; F17.290 Nicotine dependence, other tobacco product, uncomplicated; M19.90 Unspecified osteoarthritis, unspecified site; N40.0 Benign prostatic hyperplasia without lower urinary tract symptoms; F41.0 Panic disorder [episodic paroxysmal anxiety]; E66.9 Obesity, unspecified; Z68.32 Body mass index [BMI] 32.0-32.9, adult; R41.3 Other amnesia; Z83.2 Family history of diseases of the blood and blood-forming organs and certain disorders involving the immune mechanism; Z86.14 Personal history of Methicillin resistant Staphylococcus aureus infection; Z83.3 Family history of diabetes mellitus; Z82.49 Family history of ischemic heart disease and other diseases of the circulatory system; Z96.643 Presence of artificial hip joint, bilateral; Z96.651 Presence of right artificial knee joint; Z79.1 Long term (current) use of non-steroidal anti-inflammatories (NSAID); Z79.82 Long term (current) use of aspirin; Z79.891 Long term (current) use of opiate analgesic; Z79.899 Other long term (current) drug therapy; Z91.048 Other nonmedicinal substance allergy status
CPT/HCPCS: 93005 ×2; 96366 ×3; 96375 ×2; 96376 ×3; 96361; 96365; 99291; 36415; 93306; 93351; 85379; 83880; 80061; 80053; 83690; 83735; 84484; 85025; 85049; 85610; 85730 ×2; 71275; G0378 ×2; J2060; J1644 ×2; J2405; J1885 ×2; Q9967

== ENCOUNTER → 2023-11-10 | Outpatient (CLI) | payer OTHER ==
--- NOTE | 2023-11-10 12:59 | CT ---
EXAMINATION TYPE: CT angio chest CT DLP: 880.1 mGycm, Automated exposure control for dose reduction was used. 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 FINDINGS: Lungs/Pleura: No evidence of focal consolidation, pleural effusion or pneumothorax. Azygous fissure i s present. Airway: Layering debris within the right main bronchus. Heart: Heart is within normal limits for size . Vasculature: No evidence for intramural hematoma on noncontrast imaging. No evidence of intimal flap to suggest dissection. No aneurysm identified. Scattered atherosclerotic disease. Centimeters skin i s within normal limits measuring up to 39 mm. Mediastinum: No gross evidence of adenopathy. Musculoskeletal: No acute osseous abnormalities Soft Tissues: Unremarkable. Lower neck: No significant findings. Upper Abdomen: Fatty infiltration of the great head neck region. IMPRESSION: 1. No evidence for aortic aneurysm, dissection or occlusion No evidence poor embolus.. Ascending tho racic aorta measures within normal limits up to 3.9 cm. No evidence for occlusion. 2. Debris within the right main bronchus correlate for retained secretions.
== END | disposition home or self-care (01) ==
LOC: RADCTMAIN 11:14
PROVIDERS: ATTEND Internal Medicine Interventional Cardiology
DX: J98.09 Other diseases of bronchus, not elsewhere classified (principal); I77.810 Thoracic aortic ectasia; I10 Essential (primary) hypertension; E78.5 Hyperlipidemia, unspecified
CPT/HCPCS: 71275; Q9967